=== PATIENT | male | born 1990 | race Caucasian/White ===

== ENCOUNTER 2017-07-03 20:25 | Inpatient (IN) | payer MEDICAID ==
[~2017-07-03] VITALS: Ht 170.2 cm; Wt 111.6 kg
[2017-07-03] MEDS ORDERED: TOPI25 PO (23:05)
[2017-07-03] MEDS ORDERED: DIVA500T35 PO (23:05)
[2017-07-03 23:08] VITALS: BP 121/74
[2017-07-04 00:05] VITALS: BP 115/79
[2017-07-04] MEDS: LORazepam 2 MG TABLET PO PRN ×2 (00:06→16:04)
[2017-07-04] MEDS: HALOPERIDOL 5 MG TABLET PO PRN ×2 (00:06→16:04)
[2017-07-04] MEDS: ZOLPIDEM TARTRATE 10 MG TABLET PO PRN (00:06)
[2017-07-04 08:02] VITALS: BP 131/84
[2017-07-04 08:05] LABS: BASOPHILS % (AUTO) 0.4 % (0.0-2.0); EOSINOPHILS % (AUTO) 1.3 % (1.0-6.0); HEMATOCRIT 44.5 % (41-53); HEMOGLOBIN 15.4 g/dL (13.5-17.5); LYMPHOCYTES % (AUTO) 28.3 % (22.0-44.0); MEAN CORPUSCULAR HEMOGLOBIN 32.1 pg (26.0-34.0); MEAN CORPUSCULAR HGB CONC 34.5 G/dL (31.0-37.0); MEAN CORPUSCULAR VOLUME 93 fL (80-100); MONOCYTES # (AUTO) 0.7 K/uL (0.1-1.0); MONOCYTES % (AUTO) 9.2 % (2.0-9.0); NEUTROPHILS # (AUTO) 4.4 K/uL (1.8-7.7); NEUTROPHILS % (AUTO) 60.8 % (40.0-70.0); PLATELET COUNT (AUTO) 209 K/uL (150-450); RED BLOOD CELL COUNT(AUTO) 4.78 MIL/uL (4.50-5.90); RED CELL DISTRIBUTION WIDTH 13.3 % (11.5-14.5)
[2017-07-04 08:21] LABS: ALANINE AMINOTRANSFERASE 22 U/L (12-78); ALBUMIN 3.7 g/dL (3.4-5.0); ALKALINE PHOSPHATASE 58 U/L (46-116); ANION GAP 8 mmol/L (8-16); ASPARTATE AMINOTRANSFERASE 27 U/L (15-37); BILIRUBIN,TOTAL 0.5 mg/dL (0.1-1.0); CALCIUM, TOTAL 9.3 mg/dL (8.8-10.5); CARBON DIOXIDE 28 mmol/L (22-29); CHLORIDE 104 mmol/L (98-107); CREATININE 0.98 mg/dL (0.60-1.30); GLOMERULAR FILTR. RATE CALC > 60 mL/min (>60); GLUCOSE,RANDOM 85 mg/dL (70-110); SODIUM SERUM 140 mmol/L (136-145); UREA NITROGEN, BLOOD 17 mg/dL (7-18)
[2017-07-04 16:00] VITALS: BP 132/65
[2017-07-04] MEDS: RisperiDONE 1 MG TABLET PO SCH (16:22)
[2017-07-04] MEDS ORDERED: IBUPROFEN 400 MG TABLET PO PRN (19:45)
[2017-07-04] MEDS ORDERED: ACETAMINOPHEN 325 MG TABLET PO PRN (19:45)
[2017-07-05 07:00] VITALS: BP 121/67
[2017-07-05] MEDS: LORazepam 2 MG TABLET PO PRN ×3 (08:01→20:08)
[2017-07-05] MEDS: HALOPERIDOL 5 MG TABLET PO PRN ×2 (08:01→16:06)
[2017-07-05] MEDS: RisperiDONE 1 MG TABLET PO SCH ×2 (08:01→16:06)
[2017-07-05 08:06] VITALS: BP 116/67
[2017-07-05 16:00] VITALS: BP 112/73
[2017-07-05] MEDS: ZOLPIDEM TARTRATE 10 MG TABLET PO PRN (20:08)
[2017-07-06 06:45] VITALS: BP 129/75
[2017-07-06] MEDS: HALOPERIDOL 5 MG TABLET PO PRN ×3 (07:49→16:46)
[2017-07-06] MEDS: LORazepam 2 MG TABLET PO PRN ×3 (07:49→16:46)
[2017-07-06] MEDS: RisperiDONE 2 MG TABLET PO SCH ×2 (08:00→16:46)
[2017-07-06 08:43] VITALS: BP 121/61
[2017-07-06 16:00] VITALS: BP 117/68
[2017-07-07 03:01] VITALS: BP 116/69
[2017-07-07] MEDS: LORazepam 2 MG TABLET PO PRN ×2 (08:12→16:16)
[2017-07-07] MEDS: RisperiDONE 3 MG TABLET PO SCH ×2 (08:13→16:16)
[2017-07-07] MEDS: HALOPERIDOL 5 MG TABLET PO PRN ×2 (08:13→16:16)
[2017-07-07 08:38] VITALS: BP 134/61
[2017-07-07 16:11] VITALS: BP 108/65
[2017-07-07] MEDS: ZOLPIDEM TARTRATE 10 MG TABLET PO PRN (20:22)
[2017-07-08 05:14] VITALS: BP 119/90
[2017-07-08] MEDS: RisperiDONE 3 MG TABLET PO SCH ×2 (09:00→16:26)
[2017-07-08 10:37] VITALS: BP 127/67
[2017-07-08 16:22] VITALS: BP 127/73
[2017-07-08] MEDS: LORazepam 2 MG TABLET PO PRN (16:26)
[2017-07-08] MEDS: HALOPERIDOL 5 MG TABLET PO PRN (20:01)
[2017-07-08] MEDS: ZOLPIDEM TARTRATE 10 MG TABLET PO PRN (20:01)
[2017-07-09 06:33] VITALS: BP 107/60
[2017-07-09 08:00] VITALS: BP 114/77
[2017-07-09] MEDS: RisperiDONE 3 MG TABLET PO SCH ×2 (08:29→16:36)
[2017-07-09 16:35] VITALS: BP 132/83
[2017-07-09] MEDS: HALOPERIDOL 5 MG TABLET PO PRN (16:36)
[2017-07-09] MEDS: LORazepam 2 MG TABLET PO PRN (16:36)
[2017-07-09] MEDS: ZOLPIDEM TARTRATE 10 MG TABLET PO PRN (20:21)
[2017-07-10 03:46] VITALS: BP 127/64
[2017-07-10 08:41] VITALS: BP 141/88
[2017-07-10] MEDS: RisperiDONE 3 MG TABLET PO SCH ×2 (09:00→16:32)
[2017-07-10] MEDS: LORazepam 2 MG TABLET PO PRN ×2 (16:32→20:42)
[2017-07-10 17:14] VITALS: BP 119/82
[2017-07-10] MEDS: ZOLPIDEM TARTRATE 10 MG TABLET PO PRN (20:42)
[2017-07-11 07:25] VITALS: BP 135/81
[2017-07-11 08:06] VITALS: BP 129/70
[2017-07-11] MEDS: DIVALPROEX SODIUM 250 MG DR TABLET PO SCH ×2 (08:39→16:43)
[2017-07-11] MEDS: LORazepam 2 MG TABLET PO PRN ×3 (08:39→16:44)
[2017-07-11] MEDS: HALOPERIDOL 5 MG TABLET PO PRN ×3 (08:39→16:44)
[2017-07-11] MEDS: BACITRACIN 28.4 GM OINTMENT TP SCH ×2 (08:39→16:43)
[2017-07-11] MEDS: RisperiDONE 3 MG TABLET PO SCH ×2 (08:39→16:43)
[2017-07-11 16:06] VITALS: BP 119/66
[2017-07-12 06:12] VITALS: BP 100/61
[2017-07-12 08:40] VITALS: BP 119/60
[2017-07-12] MEDS: BACITRACIN 28.4 GM OINTMENT TP SCH ×2 (08:58→16:17)
[2017-07-12] MEDS: LORazepam 2 MG TABLET PO PRN ×2 (08:58→14:36)
[2017-07-12] MEDS: RisperiDONE 3 MG TABLET PO SCH ×2 (08:58→16:17)
[2017-07-12] MEDS: HALOPERIDOL 5 MG TABLET PO PRN ×2 (08:58→14:36)
[2017-07-12] MEDS: DIVALPROEX SODIUM 500 MG DR TABLET PO SCH ×2 (08:58→16:17)
[2017-07-12 16:31] VITALS: BP 111/60
[2017-07-13 03:26] VITALS: BP 103/61
[2017-07-13 08:27] VITALS: BP 117/78
[2017-07-13 08:27] LABS: EOSINOPHILS % (AUTO) 1.7 % (1.0-6.0); HEMATOCRIT 48.1 % (41-53); HEMOGLOBIN 16.5 g/dL (13.5-17.5); LYMPHOCYTES # (AUTO) 1.8 K/uL (1.0-4.8); MEAN CORPUSCULAR HEMOGLOBIN 32.2 pg (26.0-34.0); MEAN CORPUSCULAR HGB CONC 34.3 G/dL (31.0-37.0); MEAN CORPUSCULAR VOLUME 94 fL (80-100); MONOCYTES # (AUTO) 0.3 K/uL (0.1-1.0); MONOCYTES % (AUTO) 3.7 % (2.0-9.0); NEUTROPHILS # (AUTO) 4.5 K/uL (1.8-7.7); NEUTROPHILS % (AUTO) 67.6 % (40.0-70.0); PLATELET COUNT (AUTO) 228 K/uL (150-450); RED BLOOD CELL COUNT(AUTO) 5.14 MIL/uL (4.50-5.90); RED CELL DISTRIBUTION WIDTH 13.8 % (11.5-14.5)
[2017-07-13] MEDS: BACITRACIN 28.4 GM OINTMENT TP SCH (08:55)
[2017-07-13] MEDS: DIVALPROEX SODIUM 500 MG DR TABLET PO SCH (08:55)
[2017-07-13] MEDS: HALOPERIDOL 5 MG TABLET PO PRN (08:55)
[2017-07-13] MEDS: RisperiDONE 3 MG TABLET PO SCH (08:55)
[2017-07-13] MEDS: LORazepam 2 MG TABLET PO PRN (08:55)
[2017-07-13 09:22] LABS: ALANINE AMINOTRANSFERASE 27 U/L (12-78); ALBUMIN 4.1 g/dL (3.4-5.0); ALKALINE PHOSPHATASE 71 U/L (46-116); ANION GAP 8 mmol/L (8-16); ASPARTATE AMINOTRANSFERASE 10 U/L (15-37); BILIRUBIN,TOTAL 0.5 mg/dL (0.1-1.0); CALCIUM, TOTAL 9.4 mg/dL (8.8-10.5); CARBON DIOXIDE 30 mmol/L (22-29); CHLORIDE 101 mmol/L (98-107); CREATININE 1.01 mg/dL (0.60-1.30); GLOMERULAR FILTR. RATE CALC > 60 mL/min (>60); GLUCOSE,RANDOM 177 mg/dL (70-110); POTASSIUM 3.4 mmol/L (3.5-5.1); SODIUM SERUM 139 mmol/L (136-145); TOTAL PROTEIN, SERUM 8.3 g/dL (6.4-8.2); UREA NITROGEN, BLOOD 12 mg/dL (7-18); VALPROIC ACID 28 mcg/mL (50-100)
[2017-07-13] MEDS ORDERED: POTASSIUM CHLORIDE 20 MEQ ER TABLET PO ONE (10:00)
[2017-07-13] MEDS ORDERED: DIVA500T35 PO (10:27)
[2017-07-13] MEDS ORDERED: RISP3 PO (10:27)
[2017-07-13] MEDS ORDERED: LORA1TAB3 PO (11:11)
[2017-07-13] MEDS ORDERED: LORA2TAB2 PO ×2 (11:11→11:15)
== END 2017-07-13 15:25 | disposition home or self-care (01) | DRG 751 ==
LOC: EDSTATUS 22:14 → B3A 23:01
PROVIDERS: ADMIT Psychiatry & Neurology Psychiatry; ATTEND Psychiatry & Neurology Psychiatry
DX: F29 Unspecified psychosis not due to a substance or known physiological condition (principal); F73 Profound intellectual disabilities; F84.0 Autistic disorder; G47.00 Insomnia, unspecified; F94.0 Selective mutism
CPT/HCPCS: 99285

== ENCOUNTER 2017-07-10 17:15 | Emergency (ER) | payer MEDICAID, OTHER ==
[~2017-07-10] VITALS: Ht 167.6 cm; Wt 81.8 kg
[~2017-07-10 17:15] MED LIST: DIVA500T35 PO; TOPI25 PO
[2017-07-10] MEDS ORDERED: LIDOCAINE HCL 2% VISCOUS 15 ML SOLUTION UDCUP PO ONE (18:15)
[2017-07-10] MEDS ORDERED: LORazepam 2 MG/ML VIAL IM ONE (19:15)
[2017-07-10] MEDS ORDERED: HALOPERIDOL LACTATE 5 MG/ML VIAL IM ONE (19:15)
[2017-07-10 19:23] VITALS: BP 133/88
== END 2017-07-10 19:42 | disposition home or self-care (01) ==
LOC: EMS 17:17
DX: S01.511A Laceration without foreign body of lip, initial encounter (principal); Y04.0XXA Assault by unarmed brawl or fight, initial encounter; Y93.89 Activity, other specified; Y92.89 Other specified places as the place of occurrence of the external cause; Y99.8 Other external cause status
CPT/HCPCS: 12011; 99283; J1630; J2060

== ENCOUNTER 2017-08-22 11:29 | Inpatient (IN) | payer MEDICAID ==
[~2017-08-22] VITALS: Ht 170.2 cm; Wt 114.8 kg
[~2017-08-22 11:29] MED LIST changes: +LORA2TAB2 PO; +RISP3 PO; -TOPI25 PO
[2017-08-22 13:38] VITALS: BP 127/82
[2017-08-22] MEDS ORDERED: INFLUENZA VIRUS VACCINE QVS 2017-18 (3YR+)/PF 60 MCG/0.5 ML SYRINGE IM ONE (13:45)
[2017-08-22 13:48] VITALS: BP 128/78
[2017-08-22] MEDS ORDERED: LORazepam 2 MG TABLET ONE (13:50)
[2017-08-22] MEDS ORDERED: HALOPERIDOL 5 MG TABLET ONE (13:51)
[2017-08-22] MEDS: HALOPERIDOL 5 MG TABLET PO PRN ×2 (13:54→18:24)
[2017-08-22] MEDS: LORazepam 2 MG TABLET PO PRN ×2 (13:54→18:24)
[2017-08-22 16:00] VITALS: BP 114/72
[2017-08-22] MEDS: RisperiDONE 3 MG TABLET PO SCH (16:12)
[2017-08-22] MEDS: DIVALPROEX SODIUM 500 MG DR TABLET PO SCH (16:12)
[2017-08-22] MEDS: ZOLPIDEM TARTRATE 10 MG TABLET PO PRN (21:44)
[2017-08-23 07:00] VITALS: BP 119/67
[2017-08-23] MEDS: HALOPERIDOL 5 MG TABLET PO PRN ×3 (07:31→16:28)
[2017-08-23] MEDS: LORazepam 2 MG TABLET PO PRN ×3 (07:31→16:28)
[2017-08-23 08:00] VITALS: BP 124/72
[2017-08-23 08:16] LABS: BASOPHILS % (AUTO) 0.2 % (0.0-2.0); HEMATOCRIT 45.4 % (41-53); HEMOGLOBIN 15.8 g/dL (13.5-17.5); LYMPHOCYTES # (AUTO) 1.7 K/uL (1.0-4.8); LYMPHOCYTES % (AUTO) 28.9 % (22.0-44.0); MEAN CORPUSCULAR HEMOGLOBIN 31.8 pg (26.0-34.0); MEAN CORPUSCULAR HGB CONC 34.8 G/dL (31.0-37.0); MEAN CORPUSCULAR VOLUME 92 fL (80-100); MONOCYTES # (AUTO) 0.4 K/uL (0.1-1.0); MONOCYTES % (AUTO) 7.6 % (2.0-9.0); NEUTROPHILS # (AUTO) 3.6 K/uL (1.8-7.7); NEUTROPHILS % (AUTO) 61.3 % (40.0-70.0); PLATELET COUNT (AUTO) 203 K/uL (150-450); RED BLOOD CELL COUNT(AUTO) 4.97 MIL/uL (4.50-5.90); RED CELL DISTRIBUTION WIDTH 13.2 % (11.5-14.5)
[2017-08-23 08:41] LABS: HEMOGLOBIN A1C 5.3 % (4.5-6.2)
[2017-08-23] MEDS: DIVALPROEX SODIUM 500 MG DR TABLET PO SCH ×2 (09:38→16:28)
[2017-08-23] MEDS: RisperiDONE 3 MG TABLET PO SCH ×2 (09:38→16:28)
[2017-08-23 09:49] LABS: ALANINE AMINOTRANSFERASE 50 U/L (12-78); ALBUMIN 3.9 g/dL (3.4-5.0); ALKALINE PHOSPHATASE 58 U/L (46-116); ANION GAP 9 mmol/L (8-16); ASPARTATE AMINOTRANSFERASE 21 U/L (15-37); BILIRUBIN,TOTAL 0.6 mg/dL (0.1-1.0); CALCIUM, TOTAL 9.4 mg/dL (8.8-10.5); CARBON DIOXIDE 28 mmol/L (22-29); CHLORIDE 102 mmol/L (98-107); CHOL/HDL RATIO 3.4 (4.2-7.3); CHOLESTEROL 153 mg/dL (131-200); CREATININE 0.73 mg/dL (0.60-1.30); GLOMERULAR FILTR. RATE CALC > 60 mL/min (>60); GLUCOSE,RANDOM 99 mg/dL (70-110); HDL CHOLESTEROL 45 mg/dL (40-60); LDL CHOL (CALC.) 75 mg/dL (0-130); POTASSIUM 3.9 mmol/L (3.5-5.1); SODIUM SERUM 139 mmol/L (136-145); THYROID STIMULATING HORMONE 1.43 uIU/mL (0.36-3.74); TOTAL PROTEIN, SERUM 7.6 g/dL (6.4-8.2); TRIGLYCERIDES 164 mg/dL (15-150); UREA NITROGEN, BLOOD 13 mg/dL (7-18)
[2017-08-23] MEDS ORDERED: IBUPROFEN 400 MG TABLET PO PRN (11:30)
[2017-08-23] MEDS ORDERED: ACETAMINOPHEN 325 MG TABLET PO PRN (11:30)
[2017-08-23 16:29] VITALS: BP 106/69
[2017-08-23] MEDS: ZOLPIDEM TARTRATE 10 MG TABLET PO PRN (21:00)
[2017-08-24 06:31] VITALS: BP 110/72
[2017-08-24] MEDS: RisperiDONE 3 MG TABLET PO SCH ×2 (08:12→16:10)
[2017-08-24] MEDS: LORazepam 2 MG TABLET PO PRN ×2 (08:12→12:50)
[2017-08-24] MEDS: DIVALPROEX SODIUM 500 MG DR TABLET PO SCH ×2 (08:12→16:10)
[2017-08-24] MEDS: HALOPERIDOL 5 MG TABLET PO PRN ×2 (08:12→12:50)
[2017-08-24 09:17] LABS: HEMOGLOBIN A1C 5.2 % (4.5-6.2)
[2017-08-24 09:47] LABS: CHOL/HDL RATIO 3.7 (4.2-7.3); THYROID STIMULATING HORMONE 1.34 uIU/mL (0.36-3.74)
[2017-08-24 10:44] LABS: AMPHET/METH SCREEN,URINE NEGATIVE (NEGATIVE); BARBITURATE SCREEN, URINE NEGATIVE (NEGATIVE); BENZODIAZEPINES SCREEN,URINE NEGATIVE (NEGATIVE); CANNABINOID SCREEN,URINE NEGATIVE (NEGATIVE); COCAINE SCREEN,URINE NEGATIVE (NEGATIVE); METHADONE SCREEN, URINE NEGATIVE (NEGATIVE); OPIATE SCREEN,URINE NEGATIVE (NEGATIVE)
[2017-08-24 10:48] LABS: PHENCYCLIDINE SCREEN,URINE NEGATIVE (NEGATIVE)
[2017-08-24 11:38] LABS: APPEARANCE,URINE CLEAR (CLEAR); BILIRUBIN,URINE NEGATIVE (NEGATIVE); GLUCOSE, URINE (UA) NEGATIVE (NEGATIVE); KETONES,URINE NEGATIVE (NEGATIVE); LEUKOCYTE ESTERASE ,URINE NEGATIVE (NEGATIVE); NITRATE,URINE NEGATIVE (NEGATIVE); OCCULT BLOOD,URINE NEGATIVE (NEGATIVE); PH,URINE 7.5 (5.0-8.0); PROTEIN,URINE NEGATIVE (NEGATIVE)
[2017-08-24 12:10] VITALS: BP 130/74
[2017-08-24 16:07] VITALS: BP 119/69
[2017-08-25 07:08] VITALS: BP 125/79
[2017-08-25 08:29] VITALS: BP 122/62
[2017-08-25] MEDS: HALOPERIDOL 5 MG TABLET PO PRN ×3 (08:42→16:58)
[2017-08-25] MEDS: RisperiDONE 3 MG TABLET PO SCH ×2 (08:42→16:10)
[2017-08-25] MEDS: DIVALPROEX SODIUM 500 MG DR TABLET PO SCH ×2 (08:42→16:10)
[2017-08-25] MEDS: LORazepam 2 MG TABLET PO PRN ×3 (08:42→16:58)
[2017-08-25 16:12] VITALS: BP 110/62
[2017-08-25] MEDS: ZOLPIDEM TARTRATE 10 MG TABLET PO PRN (20:14)
[2017-08-26 06:40] VITALS: BP 107/61
[2017-08-26] MEDS: RisperiDONE 3 MG TABLET PO SCH ×2 (08:28→16:08)
[2017-08-26] MEDS: DIVALPROEX SODIUM 500 MG DR TABLET PO SCH ×2 (08:28→16:08)
[2017-08-26 08:38] VITALS: BP 123/81
[2017-08-26] MEDS: LORazepam 2 MG TABLET PO PRN (09:12)
[2017-08-26 16:14] VITALS: BP 110/65
[2017-08-26] MEDS: ZOLPIDEM TARTRATE 10 MG TABLET PO PRN (20:30)
[2017-08-27 05:01] VITALS: BP 121/68
[2017-08-27] MEDS: LORazepam 2 MG TABLET PO PRN ×3 (07:44→17:56)
[2017-08-27] MEDS: RisperiDONE 3 MG TABLET PO SCH ×2 (08:24→16:05)
[2017-08-27] MEDS: DIVALPROEX SODIUM 500 MG DR TABLET PO SCH ×2 (08:24→16:05)
[2017-08-27 08:33] VITALS: BP 114/66
[2017-08-27] MEDS: HALOPERIDOL 5 MG TABLET PO PRN ×2 (09:18→14:16)
[2017-08-27 16:30] VITALS: BP 117/97
[2017-08-27] MEDS: ZOLPIDEM TARTRATE 10 MG TABLET PO PRN (22:34)
[2017-08-28 02:00] VITALS: BP 115/68
[2017-08-28 08:30] VITALS: BP 136/85
[2017-08-28] MEDS: RisperiDONE 3 MG TABLET PO SCH ×2 (08:58→16:06)
[2017-08-28] MEDS: DIVALPROEX SODIUM 500 MG DR TABLET PO SCH ×2 (08:58→16:06)
[2017-08-28] MEDS: LORazepam 2 MG TABLET PO PRN ×2 (10:14→16:06)
[2017-08-28] MEDS ORDERED: RisperiDONE MICROSPHERES 50 MG/2 ML SYRINGE IM SCH (12:00)
[2017-08-28 17:29] VITALS: BP 129/88
[2017-08-29 06:00] VITALS: BP 113/64
[2017-08-29] MEDS ORDERED: RISP12.5 INJ (07:55)
[2017-08-29 08:00] VITALS: BP 121/64
[2017-08-29] MEDS: RisperiDONE 3 MG TABLET PO SCH ×2 (09:40→16:48)
[2017-08-29] MEDS: DIVALPROEX SODIUM 500 MG DR TABLET PO SCH ×2 (09:40→16:48)
[2017-08-29] MEDS: HALOPERIDOL 5 MG TABLET PO PRN (11:18)
[2017-08-29] MEDS: LORazepam 2 MG TABLET PO PRN ×2 (11:18→20:07)
[2017-08-29] MEDS ORDERED: HALOPERIDOL LACTATE 5 MG/ML VIAL IM ONE (14:30)
[2017-08-29] MEDS ORDERED: LORazepam 2 MG/ML VIAL IM ONE (14:30)
[2017-08-29] MEDS ORDERED: DiphenhydrAMINE HCL 50 MG/ML VIAL IM ONE (14:30)
[2017-08-29 16:37] VITALS: BP 104/61
[2017-08-29] MEDS: ZOLPIDEM TARTRATE 10 MG TABLET PO PRN (21:47)
[2017-08-30 01:23] VITALS: BP 111/68
[2017-08-30 08:38] VITALS: BP 119/67
[2017-08-30] MEDS: LORazepam 2 MG TABLET PO PRN ×2 (08:44→16:05)
[2017-08-30] MEDS: DIVALPROEX SODIUM 500 MG DR TABLET PO SCH ×2 (08:44→16:05)
[2017-08-30] MEDS: RisperiDONE 3 MG TABLET PO SCH ×2 (08:44→16:05)
[2017-08-30 16:10] VITALS: BP 110/68
[2017-08-30] MEDS: ZOLPIDEM TARTRATE 10 MG TABLET PO PRN (20:55)
[2017-08-31 06:33] VITALS: BP 120/67
[2017-08-31 08:20] VITALS: BP 120/62
[2017-08-31] MEDS: RisperiDONE 3 MG TABLET PO SCH ×2 (09:22→16:06)
[2017-08-31] MEDS: LORazepam 2 MG TABLET PO PRN ×2 (09:22→14:19)
[2017-08-31] MEDS: DIVALPROEX SODIUM 250 MG DR TABLET PO SCH ×2 (09:22→16:06)
[2017-08-31] MEDS: HALOPERIDOL 5 MG TABLET PO PRN (14:19)
[2017-08-31 16:09] VITALS: BP 120/84
[2017-09-01 07:04] VITALS: BP 100/60
[2017-09-01 08:33] VITALS: BP 112/60
[2017-09-01] MEDS: RisperiDONE 3 MG TABLET PO SCH ×2 (08:42→16:22)
[2017-09-01] MEDS: DIVALPROEX SODIUM 250 MG DR TABLET PO SCH ×2 (08:43→16:22)
[2017-09-01] MEDS: LORazepam 2 MG TABLET PO PRN ×2 (08:43→16:22)
[2017-09-01] MEDS ORDERED: LORazepam 2 MG/ML VIAL IM ONE (11:30)
[2017-09-01] MEDS ORDERED: DiphenhydrAMINE HCL 50 MG/ML VIAL IM ONE (11:30)
[2017-09-01] MEDS ORDERED: HALOPERIDOL LACTATE 5 MG/ML VIAL IM ONE (11:30)
[2017-09-01 12:30] VITALS: BP 114/64
[2017-09-01 16:23] VITALS: BP 118/64
[2017-09-02 06:34] VITALS: BP 107/61
[2017-09-02 08:44] VITALS: BP 121/68
[2017-09-02] MEDS: RisperiDONE 3 MG TABLET PO SCH ×2 (08:54→16:25)
[2017-09-02] MEDS: HALOPERIDOL 5 MG TABLET PO PRN (08:54)
[2017-09-02] MEDS: LORazepam 2 MG TABLET PO PRN ×2 (08:54→16:25)
[2017-09-02] MEDS: DIVALPROEX SODIUM 250 MG DR TABLET PO SCH ×2 (08:54→16:25)
[2017-09-02 16:33] VITALS: BP 116/61
[2017-09-03 06:47] VITALS: BP 117/60
[2017-09-03] MEDS: RisperiDONE 3 MG TABLET PO SCH (08:09)
[2017-09-03] MEDS: LORazepam 2 MG TABLET PO PRN ×2 (08:09→12:21)
[2017-09-03] MEDS: DIVALPROEX SODIUM 250 MG DR TABLET PO SCH (08:09)
[2017-09-03] MEDS: HALOPERIDOL 5 MG TABLET PO PRN ×2 (08:09→12:21)
[2017-09-03 08:29] VITALS: BP 111/72
[2017-09-10] MEDS ORDERED: RisperiDONE MICROSPHERES 50 MG/2 ML SYRINGE IM SCH (09:00)
== END 2017-09-03 16:00 | disposition home or self-care (01) | DRG 750 ==
LOC: B3A 13:15 → B2S 08-24 22:20
PROVIDERS: ADMIT Psychiatry & Neurology Psychiatry; ATTEND Psychiatry & Neurology Psychiatry
DX: F20.9 Schizophrenia, unspecified (principal); F73 Profound intellectual disabilities; R45.851 Suicidal ideations; E78.5 Hyperlipidemia, unspecified; F10.10 Alcohol abuse, uncomplicated; F41.9 Anxiety disorder, unspecified; F84.0 Autistic disorder; F94.0 Selective mutism; F29 Unspecified psychosis not due to a substance or known physiological condition; R00.0 Tachycardia, unspecified; Z79.899 Other long term (current) drug therapy
CPT/HCPCS: 80307; 83036; 84439; 84443; 87081; 90471; J1200; J1630; J2060; J2794